=== PATIENT | female | born 1995 | race Caucasian/White ===

== ENCOUNTER 2016-04-12 17:17 | Emergency (ER) | payer BC, OTHER ==
[~2016-04-12] VITALS: Ht 180.3 cm; Wt 73.6 kg
[2016-04-12 17:27] VITALS: TEMP 36.5; Ht 180.3 cm; Wt 73.6 kg
[2016-04-12] MEDS ORDERED: SODIUM CHLORIDE 0.9% 1000ML 1,000 ML IV STA (17:39)
--- NOTE | 2016-04-12 17:48 | EMERGENCY ROOM VISIT NOTE ---
History Report prepared by Cristain: William Banerjee Under the Supervision of: Dr. Hu Coreas D.O. First contact with patient: 17:30 Chief Complaint: SYNCOPE (NEAR SYNCOPE) Stated Complaint: SYNCOPE/ POSS. SEIZURE History of Present Illness The patient is a 20 year old female who presents to the Emergency Room after a syncopal episode that occurred prior to arrival at the ED. The patient was incontinent during this episode and noted she was diaphoretic when she woke up. The patient notes that before the episode she was watching a movie and when she stood up she was very lightheaded and dizzy. She walked down the hallway to get a drink of water when she noticed her lightheadedness getting worse and her vision starting to get blurry. At that point, she fainted and fell to the floor. She denies injuring herself or any pain from the fall at this time. She notes that she did not drink much water or eat well earlier in the day. The patient denies abdominal pain, nausea, vomiting, back pain, neck pain, or headache. She also denies drinking, a recent stomach flu, or any other activities that would have recently dehydrated her. Her last menstrual period was two weeks ago and she is on control. She notes she had a similar, but less severe, episode to this one about one year ago at a indoor concert that was very warm. 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 A total of 10 systems reviewed and were otherwise negative. Past Medical & Surgical Medical Problems: (1) Asthma, Unspecified (2) Lumbago Surgical Problems: (1) No history of previous surgery Family History Cancer Diabetes mellitus Social History Smoking Status: Never Smoker Drug Use: none Marital Status: single Housing Status: lives with roommate Occupation Status: [employer] Current/Historical Medications Scheduled Ascorbic Acid (Vitamin C), 1 TAB PO DAILY Control Pills ( Control Pills), 1 TAB PO DAILY Allergies Coded Allergies: No Known Allergies (Unverified , 10/21/14) Physical Exam Vital Signs Date Time Temp Pulse Resp B/P Pulse Ox O2 Delivery O2 Flow Rate FiO2 04/12/16 20:17 74 16 117/73 100 04/12/16 19:00 72 20 117/68 100 Room Air 04/12/16 17:58 66 04/12/16 17:50 100 Room Air 04/12/16 17:29 66 20 118/77 100 Room Air 62 128/86 74 124/80 04/12/16 17:27 36.5 68 18 93/81 96 Room Air Physical Exam GENERAL: Patient is awake alert in no acute distress patient is resting comfortably and showing no signs of anxiety EYES: The conjunctivae are clear. The pupils are round and reactive. EARS, NOSE, MOUTH AND THROAT: The nose is without any evidence of any deformity. Mucous membranes are moist tongue is midline NECK: The neck is nontender and supple. RESPIRATORY: Normal respiratory effort is noted there is no evidence of wheezing rhonchi or rales CARDIOVASCULAR: Regular rate and rhythm noted there no murmurs rubs or gallops normal S1 normal S2 GASTROINTESTINAL: The abdomen is soft. Bowel sounds are present in all quadrants. Abdomen is nontender BACK: No midline tenderness or or step-off noted range of motion in flexion extension as well as rotation no signs of muscle spasm noted MUSCULOSKELETAL/EXTREMITIES: There is no evidence of gross deformity full range of motion is noted in the hips and shoulders SKIN: There is no obvious evidence of any rash. There are no petechiae, pallor or cyanosis noted. NEUROLOGIC: Patient is awake alert and oriented x3 strength is symmetric patellar reflexes are 2+ bilaterally Medical Decision & Procedures ER Provider Diagnostic Interpretation: X-ray results as stated below per interpretation by me and the radiologist. CHEST ONE VIEW PORTABLE HISTORY: EVALUATE ALTERED MENTAL STATUS/WEAKNESS COMPARISON: None. FINDINGS: The lungs are clear. Cardiac silhouette is normal in size. No pleural effusions. No pneumothorax. IMPRESSION: No acute process. Electronically signed by: Maico Burrell M.D. 04/12/2016 5:59 PM Dictated Date/Time: 04/12/2016 5:59 PM Laboratory Results 04/12/16 17:10 Red Blood Count 4.39, Mean Corpuscular Volume 86.3, Mean Corpuscular Hemoglobin 29.4, Mean Corpuscular Hemoglobin Concent 34.0, Mean Platelet Volume 9.1, Neutrophils (%) (Auto) 56.0, Lymphocytes (%) (Auto) 37.2, Monocytes (%) (Auto) 5.6, Eosinophils (%) (Auto) 0.8, Basophils (%) (Auto) 0.2, Neutrophils # (Auto) 5.29, Lymphocytes # (Auto) 3.52, Monocytes # (Auto) 0.53, Eosinophils # (Auto) 0.08, Basophils # (Auto) 0.02 04/12/16 17:10 Test 04/12/16 17:10 04/12/16 17:20 White Blood Count 9.46 K/uL (4.8-10.8) Red Blood Count 4.39 M/uL (4.2-5.4) Hemoglobin 12.9 g/dL (12.0-16.0) Hematocrit 37.9 % (37-47) Mean Corpuscular Volume 86.3 fL (80-100) Mean Corpuscular Hemoglobin 29.4 pg (25-34) Mean Corpuscular Hemoglobin Concent 34.0 g/dl (32-36) Platelet Count 296 K/uL (130-400) Mean Platelet Volume 9.1 fL (7.4-10.4) Neutrophils (%) (Auto) 56.0 % Lymphocytes (%) (Auto) 37.2 % Monocytes (%) (Auto) 5.6 % Eosinophils (%) (Auto) 0.8 % Basophils (%) (Auto) 0.2 % Neutrophils # (Auto) 5.29 K/uL (1.4-6.5) Lymphocytes # (Auto) 3.52 K/uL (1.2-3.4) Monocytes # (Auto) 0.53 K/uL (0.11-0.59) Eosinophils # (Auto) 0.08 K/uL (0-0.5) Basophils # (Auto) 0.02 K/uL (0-0.2) RDW Standard Deviation 39.9 fL (36.4-46.3) RDW Coefficient of Variation 12.5 % (11.5-14.5) Immature Granulocyte % (Auto) 0.2 % Immature Granulocyte # (Auto) 0.02 K/uL (0.00-0.02) Anion Gap 10.0 mmol/L (3-11) Est Creatinine Clear Calc Drug Dose 122.3 ml/min Estimated GFR () 119.4 Estimated GFR (Non- 103.0 BUN/Creatinine Ratio 14.3 (10-20) Calcium Level 8.6 mg/dl (8.5-10.1) Magnesium Level 1.8 mg/dl (1.8-2.4) Total Bilirubin 0.7 mg/dl (0.2-1) Direct Bilirubin 0.1 mg/dl (0-0.2) Aspartate Amino Transf (AST/SGOT) 12 U/L (15-37) Alanine Aminotransferase (ALT/SGPT) 18 U/L (12-78) Alkaline Phosphatase 60 U/L (45-117) Troponin I < 0.015 ng/ml (0-0.045) Total Protein 7.0 gm/dl (6.4-8.2) Albumin 3.7 gm/dl (3.4-5.0) Thyroid Stimulating Hormone (TSH) 2.030 uIu/ml (0.300-4.500) Human Chorionic Gonadotropin, Qual NEG (NEG) Urine Color YELLOW Urine Appearance CLEAR (CLEAR) Urine pH 7.0 (4.5-7.5) Urine Specific [place] 1.026 (1.000-1.030) Urine Protein NEG (NEG) Urine Glucose (UA) NEG (NEG) Urine Ketones TRACE (NEG) Urine Occult Blood NEG (NEG) Urine Nitrite NEG (NEG) Urine Bilirubin NEG (NEG) Urine Urobilinogen NEG (NEG) Urine Leukocyte Esterase NEG (NEG) Laboratory results per my review. Medications Administered Medications (Trade) Dose Ordered Sig/Wilson Route Start Time Stop Time Status Last Admin Dose Admin Sodium Chloride (Nss 1000ml) 1,000 ml @ 999 mls/hr Q1H1M STAT IV 04/12/16 17:39 04/12/16 18:39 DC 04/12/16 18:08 999 MLS/HR ECG Indication: syncope Rate (beats per minute): 58 Rhythm: sinus bradycardia Findings: no ectopy, other (no acute ST segment abnormality) Comparison ECG Date: no prior available ED Course 1729: The patient was evaluated in room C6. A complete history and physical examination were performed. 1738: Ordered NSS 1000 ml @ 999 mls/hr IV. 1830: Upon reevaluation, the patient is resting comfortably. I discussed the results and treatment plan with her. She verbalized agreement of the treatment plan. The patient was discharged home. Medical Decision Differential diagnosis: Etiologies such as vasovagal event, infection, hypoglycemia, electrolyte abnormalities, cardiac sources, intracerebral event, toxicologic, neurologic, as well as others were entertained. Nursing notes reviewed. The patient is a 20-year-old female who presented to the emergency department after having a syncopal episode. The patient was lying down when suddenly knocked at her door. She went to stand up quickly and felt dizzy and acutely lightheaded. She felt like her peripheral vision was closing in. The patient had a syncopal episode and was brought to the emergency department. The patient states that she had a similar episode in the past when she was dehydrated. The patient was treated with IV fluids in the emergency department. On subsequent reevaluation she was feeling much better. I discussed the patient's laboratory and radiographic studies with her. The patient was encouraged to rest and avoid any strenuous activity. She was encouraged to drink plenty clear liquids. She was also encouraged to follow-up with [facility] for reevaluation and for further evaluation. It was possible she may require further studies such as an echocardiogram or Holter monitor to further evaluate the cause of her syncope. She also complained of intermittent back pain which she states sometimes worsened when she was driving long distances. She had no back pain at this time and had no focal neurologic deficits. She had no chest pain shortness of breath tachycardia or hypoxia. She had no swelling in the legs or tenderness over the calves. At this time she was encouraged to follow- up with [facility] as well to discuss the possibility that she may require an MRI to evaluate any abnormality in her back. She states that she had disc bulging at one time. She was also encouraged return to the emergency department immediately if symptoms change worsen or if the need arises. Impression Primary Impression: Syncope Additional Impression: Dehydration Scribe Attestation The scribe's documentation has been prepared under my direction and personally reviewed by me in its entirety. I confirm that the note above accurately reflects all work, treatment, procedures, and medical decision making performed by me. Departure Information Dispostion Home / Self-Care Referrals [facility] (PCP) Forms HOME CARE DOCUMENTATION FORM, IMPORTANT VISIT INFORMATION Patient Instructions A Signature Page, My [facility] Additional Instructions Follow-up with [facility] for reevaluation. Drink plenty of clear liquids and keep herself well-hydrated. I would recommend further testing such as echocardiogram or Holter monitor at the discretion of the [facility] to further evaluate the cause of your dizziness and passing out. Return to the emergency department if symptoms change worsen or if the need arises. Also discussed the possibility with [facility] that you may require an MRI of your lower back if your back pain returns.
[2016-04-12 17:50] VITALS: O2SAT 100
--- NOTE | 2016-04-12 18:01 | DIAGNOSTIC IMAGING REPORT ---
CHEST ONE VIEW PORTABLE HISTORY: EVALUATE ALTERED MENTAL STATUS/WEAKNESS COMPARISON: None. FINDINGS: The lungs are clear. Cardiac silhouette is normal in size. No pleural effusions. No pneumothorax. IMPRESSION: No acute process. Electronically signed by: Maico Burrell M.D. 04/12/2016 5:59 PM Dictated Date/Time: 04/12/2016 5:59 PM
[2016-04-12 18:03] LABS: BASO % 0.2 %; BASO ABS # 0.02 K/uL (0-0.2); COMPLETE YES; EOS % 0.8 %; HEMATOCRIT 37.9 % (37-47); IG% 0.2 %; LYMPH % 37.2 %; LYMPH ABS # 3.52 K/uL (1.2-3.4); MEAN CELL VOLUME 86.3 fL (80-100); MEAN CORPUSCULAR HEMOGLOBIN 29.4 pg (25-34); MEAN PLATELET VOLUME 9.1 fL (7.4-10.4); MONO % 5.6 %; PLATELET COUNT 296 K/uL (130-400); RED BLOOD COUNT 4.39 M/uL (4.2-5.4); WHITE BLOOD COUNT 9.46 K/uL (4.8-10.8)
[2016-04-12 18:07] LABS: URINE APPEARANCE CLEAR (CLEAR); URINE BILIRUBIN NEG (NEG); URINE COLOR YELLOW; URINE NITRITE NEG (NEG); URINE SPECIFIC GRAVITY 1.026 (1.000-1.030); UROBILINOGEN NEG (NEG)
[2016-04-12 18:15] LABS: MANUAL MICROSCOPIC REQUIRED? NO; REVIEW REQ? NO
[2016-04-12 18:20] LABS: ALT/SGPT 18 U/L (12-78); BLOOD UREA NITROGEN 12 mg/dl (7-18); BUN/CREATININE RATIO 14.3 (10-20); CALCIUM 8.6 mg/dl (8.5-10.1); CARBON DIOXIDE 25 mmol/L (21-32); CHLORIDE 108 mmol/L (98-107); CREATININE 0.82 mg/dl (0.60-1.20); GLUCOSE 137 mg/dl (70-99); MAGNESIUM 1.8 mg/dl (1.8-2.4); POTASSIUM 3.6 mmol/L (3.5-5.1); SODIUM 143 mmol/L (136-145)
[2016-04-12] MEDS ORDERED: ASCO500T3 PO (18:24)
[2016-04-12 18:29] LABS: PREG INTERNAL NEGATIVE QC NEG CLEAR BACKGROUND; PREG INTERNAL POSITIVE QC POS CONTROL LINE
[2016-04-12 18:31] LABS: ALKALINE PHOSPHATASE 60 U/L (45-117); AST/SGOT 12 U/L (15-37)
[2016-04-12 20:17] VITALS: BP 117/73; PULSE 74; O2SAT 100
[2016-04-12] MEDS ORDERED: BCPILLS PO (23:33)
== END 2016-04-12 20:21 | disposition home or self-care (01) ==
LOC: EDBD 17:17 → C.EDC 17:18
DX: R55 Syncope and collapse (principal); E86.0 Dehydration; R00.0 Tachycardia, unspecified; J45.909 Unspecified asthma, uncomplicated; Z80.9 Family history of malignant neoplasm, unspecified; Z83.3 Family history of diabetes mellitus